=== PATIENT | male | born 1980 | race Caucasian/White ===

== ENCOUNTER → 2023-08-11 | Emergency (ER) | payer OTHER ==
[~2023-08-11] MED LIST: HYDROCODONE/APAP 10/325 TAB ONE; KETOROLAC 30 MG/ML INJ ONE
--- NOTE | 2023-08-11 12:52 | RAD REPORT ---
EXAM DESCRIPTION: RAD - Knee Right 3 View - 08/11/2023 12:41 pm CLINICAL HISTORY: PAIN COMPARISON: No comparisons TECHNIQUE: Right knee, 3 views. FINDINGS: No fracture, dislocation or periosteal reaction.[id number]-islrryvd suprapatellar joint effus ion seen. No joint space narrowing. No soft tissue abnormality. Clinical concerns for internal derangement or occult bony injury could be further assessed with MR im aging. IMPRESSION: No acute osseus abnormality. Fffq-[id number]-[id number] suprapatellar effusion.
--- NOTE | 2023-08-11 13:43 | ER ---
Nurse's Notes [facility] Name: Nilo Pisano Age: 43 yrs Sex: Male : 1980 Arrival Date: 08/11/2023 Time: 11:33 Bed Treatment Private MD: Diagnosis: Sprain of unspecified site of right knee Presentation: 08/11 11:46 Chief complaint: Patient states: R knee pain since playing [id number] this morning. ll1 Coronavirus screen: Client denies travel out of the [place] in the last 14 days. At this time, the client does not indicate any symptoms associated with coronavirus-19. Ebola Screen: Patient denies travel to an Ebola-affected area in the 21 days before illness onset. Initial Sepsis Screen: Does the patient meet any 2 criteria? No. Patient's initial sepsis screen is negative. Does the patient have a suspected source of infection? Yes: Bone or joint infection. Risk Assessment: Do you want to hurt yourself or someone else? Patient reports no desire to harm self or others. Onset of symptoms was August 11, 2023. 11:46 Method Of Arrival: Ambulatory ll1 11:46 Acuity: ESTHER 4 ll1 Historical: - Allergies: 11:48 Bees; ll1 - PMHx: 11:48 None; ll1 - PSHx: 11:48 Shoulder reconstruction; ll1 - Immunization history:: Adult Immunizations up to date. - Social history:: Smoking status: Patient denies any tobacco usage or history of. Vital Signs: 11:46 BP 167 / 99; Pulse 88; Resp 18; Temp 98.2; Pulse Ox 99% ; Pain 7/10; ll1 13:43 Weight 79.38 kg (R); ds4 11:46 Pain Scale: Adult ll1 ED Course: 11:34 Patient arrived in ED. ra3 11:47 Triage completed. ll1 11:51 Percy Rivera MD is Attending Physician. ec2 11:52 Arm band placed on. ll1 12:41 Knee Right 3 View XRAY In Process Unspecified. EDMS 13:44 Lexie Jennings, EPIFANIO is Primary Nurse. iw Administered Medications: 13:56 Drug: Kathleen PO 10 mg-325 mg 1 tabs PO once Route: PO; iw 13:56 Drug: Ketorolac IM 30 mg IM once Route: IM; Site: right ventrogluteal; iw Outcome: 13:42 Discharge ordered by . ec2 14:02 Patient left the ED. iw Signatures: Dispatcher [employer] Lexie Montgomery RN RN iw Radhames Licona ds4 Jaquelin Lozada RN RN ll1 Percy Rivera MD MD ec2 Ruth Mcqueen ra3 Corrections: (The following items were deleted from the chart) 11:52 11:48 Allergies: No Known Allergies; 1 ll1
--- NOTE | 2023-08-11 13:44 | EDPHYS ---
Physician Documentation [facility] Name: Nilo Pisano Age: 43 yrs Sex: Male : 1980 Arrival Date: 08/11/2023 Time: 11:33 Bed Treatment Private MD: ED Physician Percy Rivera HPI: 08/11 11:52 This 43 yrs old Male presents to ER via Ambulatory with complaints of Knee ec2 Injury - Right. 11:52 Patient arrives today for evaluation of right knee pain. Patient reports that he was ec2 playing racquetball subsequently twisted the knee. Reports no falls or injuries or trauma. Patient reports he is having pain with ambulation.. Historical: - Allergies: 11:48 Bees; ll1 - PMHx: 11:48 None; ll1 - PSHx: 11:48 Shoulder reconstruction; ll1 - Immunization history:: Adult Immunizations up to date. - Social history:: Smoking status: Patient denies any tobacco usage or history of. ROS: 11:52 Constitutional: as per hpi ec2 Exam: 11:52 Constitutional: GEN: NAD Head: atraumatic Eyes: EOMI Ears: External ears are ec2 normal. CV: regular rate LUNGS: no respiratory distress ABD: non-distended SKIN: no evidence of rashes MSK: no evidence of trauma, right lower extremity with TTP to the proximal tibia, no deformities, no ecchymosis, no significant swelling, no calf swelling NEURO: moves all extremities equally Vital Signs: 11:46 BP 167 / 99; Pulse 88; Resp 18; Temp 98.2; Pulse Ox 99% ; Pain 7/10; ll1 13:43 Weight 79.38 kg (R); ds4 11:46 Pain Scale: Adult ll1 MDM: 11:51 Patient medically screened. ec2 11:52 Data reviewed: vital signs. ED course: Patient arrives today for evaluation of right ec2 knee pain. Examination remarkable for knee findings as noted above. Will obtain a radiograph, treat the patient's symptoms and reassess the patient. Currently considering ligamentous injury, bony fracture.. 13:41 ED course: X-ray shows no bony fracture, does show effusion, suspect ligamentous injury ec2 given the patient's mechanism. Will prescribe the patient pain medications and follow-up with primary care doctor. Instructed him on outpatient imaging. Return precautions given.. 08/11 11:52 Order name: Knee Right 3 View XRAY; Complete Time: 13:41 ec2 Administered Medications: 13:56 Drug: [place] PO 10 mg-325 mg 1 tabs PO once Route: PO; iw 13:56 Drug: Ketorolac IM 30 mg IM once Route: IM; Site: right ventrogluteal; iw Disposition Summary: 08/11/23 13:42 Discharge Ordered Notes: Location: Home ec2 Condition: Stable ec2 Diagnosis - Sprain of unspecified site of right knee ec2 Followup: ec2 - With: Private Physician - When: - Reason: Recheck today's complaints Discharge Instructions: - Discharge Summary Sheet ec2 - Knee Sprain, Adult, [id number] ec2 Forms: - Medication Reconciliation Form ec2 - Thank You Letter ec2 - Antibiotic Education ec2 - Prescription Opioid Use ec2 - Patient Portal Instructions ec2 - Leadership Thank You Letter ec2 Prescriptions: - acetaminophen-codeine 300-15 mg Oral tablet - take 1 tablet ORAL route every 4 hours; 15 tablet; Refills: 0, Product ec2 Selection Permitted Signatures: Dispatcher [employer] Lexie Montgomery RN RN iw Jaquelin Lozada RN RN ll1 Percy Rivera MD MD ec2 Corrections: (The following items were deleted from the chart) 11:52 11:48 Allergies: No Known Allergies; ll1 ll1
[2023-08-11 14:07] VITALS: BP 167/99; TEMP 98.2; O2SAT 99
== END ==
LOC: ER 11:33
DX: S83.91XA Sprain of unspecified site of right knee, initial encounter (principal); Z91.030 Bee allergy status
CPT/HCPCS: 96372; 99284